=== PATIENT | female | born 1965 | race Two or more races ===

== ENCOUNTER 2018-09-27 16:51 | Emergency (ER) | payer OTHER ==
[~2018-09-27] VITALS: Ht 160 cm; Wt 107.0 kg
[2018-09-27] MEDS ORDERED: ZOCOR20 MG (17:55)
[2018-09-27] MEDS ORDERED: KEPPRA500 MG (17:55)
[2018-09-27] MEDS ORDERED: TOPROL XL25 M1 (17:56)
[2018-09-27] MEDS ORDERED: GLIPIZIDE ER5 MG (17:56)
[2018-09-27] MEDS ORDERED: POTASSIUM CHLO20 MEQ (17:58)
[2018-09-27] MEDS ORDERED: METFORMIN HCL1000 M1 (17:58)
[2018-09-27] MEDS ORDERED: CARBAMAZEPINE200 MG (17:59)
== END 2018-09-28 04:46 | disposition home or self-care (01) ==
LOC: ER 16:51 → EDBD 17:36 → ER 17:36
DX: I16.0 Hypertensive urgency (principal); I10 Essential (primary) hypertension; R06.02 Shortness of breath; E87.6 Hypokalemia